=== PATIENT | female | born 2000 | race Hispanic/Latino ===

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

== ENCOUNTER 2021-06-14 13:56 | Emergency (ER) | payer MEDICAID, SELFPAY ==
[2021-06-14 13:56] VITALS: BP 116/68; PULSE 88; RESP 16; TEMP 37.1; O2SAT 100; BMI 21.5
--- NOTE | 2021-06-14 14:25 | EDS_ITS ---
HPI History of Present Illness Chief Complaint: Foreign Body Informant: patient and parent Onset/Context/Timing Onset: Yesterday (Possible retained tampon) Current Severity: Normal menstrual cramping Maximum Severity: Normal menstrual cramping Worsened by: Not applicable Relieved by: Not applicable Associated Symptoms Associated Symptoms: No systemic symptoms Narrative Narrative: Patient is a 20-year-old female who presents because of presumed retained tampon. She is presently menstruating. She denies fever or chills. She denies nausea, vomiting or diarrhea. She denies dysuria, frequency, urgency or hematuria. She denies orthostatic symptoms. She denies rash. Prior similar symptoms: No Recent Illness/Hospitalization: No [facility] Medical History (Updated 06/14/21 @ 14:[address] Ezio Velazco MD) ADD (attention deficit disorder) Asthma Frequent headaches Seasonal allergies Home Medications etonogestrel 68 mg subdermal implant 1 implant SUBDERMAL ONCE 01/10/20 [History Last Taken Unknown] valacyclovir 500 mg tablet 500 mg PO DAILY #30 tab 01/20/20 [Rx Last Taken Unknown] loratadine 10 mg tablet 10 mg PO DAILY PRN 02/04/20 [History Last Taken Unknown] hydroxyzine HCl 25 mg tablet 25 mg PO BID PRN #60 tab 06/03/20 [Rx Last Taken Unknown] cholecalciferol (vitamin D3) 1,250 mcg (50,000 unit) capsule 1,250 mcg PO QWEEK #8 cap 10/22/20 [Rx Last Taken Unknown] montelukast 10 mg tablet 10 mg PO QHS #90 tab 10/22/20 [Rx Last Taken Unknown] metoprolol succinate 25 mg tablet,extended release 24 hr 25 mg PO QAM #30 tab 11/06/20 [Rx Last Taken Unknown] albuterol sulfate 90 mcg/actuation aerosol inhaler 2 puff INHALATION Q6H PRN #8.5 g 04/05/21 [Rx Last Taken Unknown] naproxen 500 mg tablet 500 mg PO BID PRN #60 tab 04/05/21 [Rx Last Taken Unknown] sumatriptan succinate 25 mg tablet See Rx Instructions PO .COMPLEX #14 tab 04/05/21 [Rx Last Taken Unknown] Allergy/AdvReac Type Severity Reaction Status Date / Time No Known Allergies Allergy Verified 06/14/21 14:12 Family History Mother Breast cancer, Onset Age: 36 estrogen positive. Negative BRCA Alcoholism Anxiety Asthma Arthritis Depression Hypertension Father Alcoholism Anxiety Depression Grandmother Arthritis Asthma Grandfather Alcoholism Depression Surgical History History of tonsillectomy History of wisdom tooth extraction Social History Smoking Status: Never smoker alcohol intake: never substance use type: does not use caffeine: Yes what type of physical activity do you participate in: walking seatbelt use: always additional social history: Joshua MORE ROS ED Constitutional Constitutional ED: Denies chills, fever(s) or subjective Cardiovascular Cardiovascular: Denies chest pain or palpitations Respiratory/Chest Respiratory/Chest: Denies cough or dyspnea Gastrointestinal Gastrointestinal: Reports abdominal pain; Denies constipation, diarrhea, nausea or vomiting Genitourinary Genitourinary ED: Denies dysuria, hematuria or urinary frequency Musculoskeletal Musculoskeletal: Denies arthralgias, back pain, myalgias or neck pain Integumentary Denies rash Neurologic Neurologic: Denies weakness Allergic/Immunologic Allergic/Immunologic ED: Denies mouth swelling, tongue swelling or urticaria EXAM Physical Exam Const Vital Signs: 06/14/21 13:56 Temperature 98.7 F Temperature Source Temporal Pulse Rate 88 Respiratory Rate 16 Blood Pressure 116/68 Blood Pressure Mean 84 Pulse Ox 100 Oxygen Delivery Method Room Air Positive well nourished and well developed General Appearance ED: well developed and NAD Eyes PERRL and EOMs intact bilaterally General Eye ED: Negative for pale conjunctiva or scleral icterus Neck no lymphadenopathy and supple Resp normal respiratory effort and clear to auscultation bilaterally Cardio regular rate, regular rhythm, S1 normal heart sound, S2 normal heart sound and no murmurs GI normal to inspection, nondistended, normoactive bowel sounds Palpation: soft Narrative: External genitalia normal. Speculum exam reveals no retained tampon. Vaginal cervical mucosa are normal. Scant amount of blood noted Back/Spine no CVA tenderness Extremity normal to inspection Neuro oriented x3 Sensorium / Orientation: alert Psych mental status grossly normal Skin no rashes or lesions noted, no wounds and skin turgor normal MDM MDM MDM Narrative Medical decision making narrative: Pelvic exam reveals no retained foreign body. Will discharge to home. Discharge Plan Triage Chief Complaint: Foreign Body ED Provider: Ezio Velazco Dx/Rx/DC Orders Clinical Impression: Encounter for medical screening examination Instructions: ED Screening Exam Medical Nonurgent Prescriptions: No Action Nexplanon 68 mg implant 1 implant subdermal ONCE RF: 0 loratadine [Claritin] 10 mg tablet 10 mg PO DAILY PRNRF: 0 hydroxyzine HCl 25 mg tablet 25 mg PO BID PRN (Reason: migraine headache) Qty: 60 RF: 2 valacyclovir [Valtrex] 500 mg tablet 500 mg PO DAILY Qty: 30 RF: 12 montelukast [Singulair] 10 mg tablet 10 mg PO QHS Qty: 90 RF: 1 cholecalciferol (vitamin D3) 1,250 mcg (50,000 unit) capsule 1,250 mcg PO QWEEK Qty: 8 RF: 0 metoprolol succinate 25 mg tablet extended release 24 hr 25 mg PO QAM Qty: 30 RF: 1 naproxen 500 mg tablet 500 mg PO BID PRN (Reason: pain) Qty: 60 RF: 0 sumatriptan succinate 25 mg tablet See Rx Instructions PO .COMPLEX Qty: 14 RF: 0 albuterol sulfate [Proventil HFA] 90 mcg/actuation HFA aerosol inhaler 2 puff INHALATION Q6H PRN (Reason: shortness of breath or wheezing) Qty: 8.5 RF: 3 Primary Care Provider: Juan Francisco Allred Referrals: Juan Francisco Allred MD [Primary Care Provider] - As Needed Disposition Disposition: Home, Self Care
== END 2021-06-14 14:40 | disposition home or self-care (01) ==
LOC: ED 14:38
PROVIDERS: Emergency Provider Emergency Medicine; PCP Internal Medicine
DX: Z00.00 Encounter for general adult medical examination without abnormal findings (principal); J45.909 Unspecified asthma, uncomplicated; Z79.51 Long term (current) use of inhaled steroids
CPT/HCPCS: 99282

== ENCOUNTER 2022-01-11 16:57 | Outpatient (CLI) | payer MEDICAID, SELFPAY ==
[2022-01-13 22:07] LABS: Chlamydia By Nucleic Acid AMP Negative (Negative)
[2022-01-13 23:01] LABS: Gonococcus By Nucleic Acid AMP Negative (Negative)
[2022-01-18 11:13] LABS: HPV Reflexed? NOT INDICATED
== END 2022-01-11 23:59 | disposition home or self-care (01) ==
LOC: LABSPEC 16:59
PROVIDERS: PCP Internal Medicine; Visit Provider Obstetrics & Gynecology
DX: Z12.4 Encounter for screening for malignant neoplasm of cervix (principal); Z11.3 Encounter for screening for infections with a predominantly sexual mode of transmission
CPT/HCPCS: 87491; 87591; 88175; G0145

== ENCOUNTER 2022-03-02 02:09 | Emergency (ER) | payer MEDICAID, SELFPAY ==
[2022-03-02 02:11] VITALS: BP 110/71; PULSE 97; RESP 16; TEMP 36.6; O2SAT 98; BMI 20.9
--- NOTE | 2022-03-02 03:08 | EX.ED.DYSGE1 ---
HPI History of Present Illness Chief Complaint: Abd Pain Informant: patient Narrative Narrative: 21-year-old female presenting to the emergency room with abdominal pain nausea and diarrhea. Patient states that 2 days ago she developed body aches. Then yesterday she developed nausea and diarrhea. She states that she has been trying to stay hydrated but the diarrhea has persisted. She has not had any antidiarrheal medicine. No fevers. She denies any bad food exposure. She is ate the same things as her mother and her mother is not sick. She describes the pain as cramping and over the lower to mid abdomen. Gets better and worse. [facility] Medical History (Updated 03/02/22 @ 03:[address] Naman Villegas DO) ADD (attention deficit disorder) Asthma Frequent headaches Seasonal allergies Home Medications etonogestrel 68 mg subdermal implant 1 implant SUBDERMAL ONCE 01/10/20 [History Last Taken Unknown] albuterol sulfate 90 mcg/actuation aerosol inhaler 2 puff INHALATION Q6H PRN #8.5 g 04/05/21 [Rx Last Taken Unknown] naproxen 500 mg tablet 500 mg PO BID PRN #60 tab 04/05/21 [Rx Last Taken Unknown] sumatriptan succinate 25 mg tablet See Rx Instructions PO .COMPLEX #14 tab 04/05/21 [Rx Last Taken Unknown] valacyclovir 500 mg tablet 500 mg PO DAILY PRN tab 01/11/22 [History Last Taken Unknown] dicyclomine 20 mg PO TIDAC #20 capsule 03/02/22 [Rx Last Taken Unknown] ondansetron 4 mg PO Q6H PRN PRN #15 tab 03/02/22 [Rx Last Taken Unknown] Allergy/AdvReac Type Severity Reaction Status Date / Time No Known Allergies Allergy Verified 03/02/22 02:17 Family History Mother Breast cancer, Onset Age: 36 estrogen positive. Negative BRCA Alcoholism Anxiety Asthma Arthritis Depression Hypertension Father Alcoholism Anxiety Depression Grandmother Arthritis Asthma Grandfather Alcoholism Depression Surgical History History of tonsillectomy History of wisdom tooth extraction Social History Smoking Status: Never smoker alcohol intake: never substance use type: does not use caffeine: Yes what type of physical activity do you participate in: none seatbelt use: always ROS ROS ED Constitutional Constitutional ED: Denies chills or weight loss Eyes Eyes: Denies change in vision or diplopia ENT ENT ED: Denies ear pain, rhinorrhea or sore throat Cardiovascular Cardiovascular: Denies chest pain, orthopnea, palpitations or racing heartbeat Respiratory/Chest Respiratory/Chest: Denies cough, dyspnea or orthopnea Gastrointestinal Gastrointestinal: Reports abdominal pain, diarrhea and nausea; Denies vomiting Genitourinary Genitourinary ED: Denies dysuria, hematuria or urinary frequency Musculoskeletal Musculoskeletal: Reports myalgias; Denies arthralgias Integumentary Denies abscess or rash Neurologic Neurologic: Denies headache(s) or weakness Psychiatric Psychiatric: Denies anxiety, depression, suicidal ideation or suicidal thoughts Endocrine Endocrinology: Denies polydipsia, polyphagia or polyuria Allergic/Immunologic Allergic/Immunologic ED: Denies mouth swelling, tongue swelling or urticaria EXAM Physical Exam Const Vital Signs: 03/02/22 02:11 Temperature 97.9 F Temperature Source Oral Pulse Rate 97 Respiratory Rate 16 Blood Pressure 110/71 Blood Pressure Mean 84 Pulse Ox 98 Oxygen Delivery Method Room Air Positive well nourished and well developed General Appearance ED: well developed HEENT Reports normocephalic, head/scalp atraumatic and moist mucous membranes Eyes PERRL and EOMs intact bilaterally Neck no lymphadenopathy, supple and no JVD Resp normal respiratory effort and clear to auscultation bilaterally Cardio regular rate, regular rhythm and no murmurs GI non-tender GI Narrative: Mild diffuse tenderness to palpation Palpation: soft and tender; Negative for guarding or rebound tenderness present Back/Spine no CVA tenderness and normal ROM Extremity normal to inspection General Extremety ED: Negative for edema General Extremity: Negative for edema Neuro oriented x3 and CN's II-XII intact bilaterally Sensorium / Orientation: alert Motor Exam: strength 5/5 throughout Psych mental status grossly normal Mood & Affect: Negative for depressed or tearful Skin no rashes or lesions noted and no wounds MDM MDM MDM Narrative Medical decision making narrative: Patient received a liter of IV fluids and Zofran in addition to Bentyl. White blood cell count is 7. CMP showed a chloride of 108 lipase 121. COVID test is negative. Patient will be discharged home with a prescription for Bentyl and Zofran return if worsening or concerns Lab Data Attestation: I reviewed the patient's lab results. Labs: Laboratory Results - last 24 hr 03/02/22 03/02/22 03:07 03:07 WBC 7.0 RBC 4.61 Hgb 14.3 Hct 43.1 MCV 93.5 MCH 31.0 MCHC 33.2 RDW Std Deviation 40.3 RDW Coeff of Suresh 11.8 Plt Count 244 MPV 11.7 Immature Gran % (Auto) 0.400 Neut % (Auto) 72.0 H Lymph % (Auto) 17.9 L [place] % (Auto) 8.7 Eos % (Auto) 0.7 Baso % (Auto) 0.3 Absolute Neuts (auto) 5.1 Absolute Lymphs (auto) 1.26 Nucleated RBC % 0 Sodium 138 Potassium 3.6 Chloride 108 H Carbon Dioxide 27.0 Anion Gap 3 L BUN 11 Creatinine 0.87 Estim Creat Clear Calc 98.97 Est GFR (MDRD) Af Amer 107 Est GFR (MDRD) Non-Af 88 BUN/Creatinine Ratio 12.7 Glucose 86 Calcium 9.3 Total Bilirubin 0.40 AST 20 ALT 23 Alkaline Phosphatase 75 Total Protein 7.4 Albumin 3.9 Globulin 3.5 Albumin/Globulin Ratio 1.1 Lipase 121 Discharge Plan Triage Chief Complaint: Abd Pain ED Provider: Naman Villegas Dx/Rx/DC Orders Clinical Impression: Abdominal pain, Diarrhea, Nausea Instructions: ED Vomiting and Diarrhea ... Prescriptions: New ondansetron [ondansetron] 4 MG tablet 4 mg PO Q6H PRN PRN (Reason: Nausea) Qty: 15 RF: 0 dicyclomine 10 MG capsule 20 mg PO TIDAC Qty: 20 RF: 0 No Action Nexplanon 68 mg implant 1 implant subdermal ONCE RF: 0 valacyclovir [Valtrex] 500 mg tablet 500 mg PO DAILY PRNRF: 0 naproxen 500 mg tablet 500 mg PO BID PRN (Reason: pain) Qty: 60 RF: 0 sumatriptan succinate 25 mg tablet See Rx Instructions PO .COMPLEX Qty: 14 RF: 0 albuterol sulfate [Proventil HFA] 90 mcg/actuation HFA aerosol inhaler 2 puff INHALATION Q6H PRN (Reason: shortness of breath or wheezing) Qty: 8.5 RF: 3 Primary Care Provider: Juan Francisco Allred Referrals: Juan Francisco Allred MD [Primary Care Provider] - As Needed Disposition Disposition: Home, Self Care
[2022-03-02 03:27] LABS: Absolute Lymphocyte Count 1.26 X10^3/uL (0.83-4.51); Absolute Neutrophil Count 5.1 X10^3/uL (2.0-7.7); Basophil# 0.02 X10^3/uL; Basophil% 0.3 % (0-1); Eosinophil# 0.05 X10^3/uL; Eosinophils% 0.7 % (0-5); Hematocrit 43.1 % (37-47); Hemoglobin 14.3 g/dL (12.0-15.0); Lymphocyte # 1.26 X10^3/ul (0.83-4.51); Lymphocyte % 17.9 % (19-41); Mean Corp Hgb Conc 33.2 g/dL (32-36); Mean Corpuscular Volume 93.5 fL (81-99); Mean Platelet Vol. 11.7 fl (6.2-12.0); Monocyte# 0.61 X10^3/uL; Monocyte% 8.7 % (0-10); NRBC Flagged by Analyzer 0 % (0-5); Neutrophil # 5.05 X10^3/uL (2.7-7.7); Platelet Count 244 K/mm3 (150-450); RBC Distribution Width CV 11.8 % (11.6-14.6); RBC Distribution Width SD 40.3 fl (35.1-43.9); Red Blood Count 4.61 M/mm3 (4.2-5.4)
[2022-03-02] MEDS: Dicyclomine 10 MG Capsule 20 MG PO (03:27)
[2022-03-02] MEDS: Ondansetron 4 MG/2 ML Vial IV (03:27)
[2022-03-02] MEDS: 0.9% Normal Saline 1,000 ML 1000 ML IV (03:27)
--- NOTE | 2022-03-02 03:34 | NURSING ---
As of 230, patient is awaiting transfer to [facility] but does not have a bed there because there are none available and the ER is too busy to send him. We are to admit at 0830 if there are still no beds available.
[2022-03-02 03:52] LABS: ALB/GLOB Ratio 1.1 RATIO (0.9-2.4); AST(SGOT) 20 U/L (15-37); Alanine Aminotransfer ALT/SGPT 23 U/L (13-56); Albumin, Serum 3.9 g/dL (3.2-5.0); Alkaline Phosphatase 75 U/L (45-117); Anion Gap 3 (5-15); BUN 11 mg/dL (7-18); BUN/Creat Ratio 12.7 RATIO (10-20); Calcium,Total 9.3 mg/dL (8.5-10.1); Chloride 108 mmol/L (98-107); Creatinine, Serum 0.87 mg/dL (0.55-1.02); EST Glomerular Filtration Rate 88 mL/min (>60); Est Glom Filt Rate - Afr Amer 107 mL/min (>60); Estimated Creatinine Clearance 98.97 ml/min; Globulin 3.5 g/dL (2.2-4.2); Glucose 86 mg/dL (74-106); Lipase 121 U/L (73-393); Potassium 3.6 mmol/L (3.5-5.1); Protein, Total 7.4 g/dL (6.4-8.2); Sodium Level 138 mmol/L (136-145)
[2022-03-02 04:45] VITALS: BP 110/73; PULSE 78; RESP 17; O2SAT 98
== END 2022-03-02 04:54 | disposition home or self-care (01) ==
PROVIDERS: Emergency Provider Emergency Medicine; PCP Internal Medicine; Visit Provider Emergency Medicine
DX: R10.9 Unspecified abdominal pain (principal); R19.7 Diarrhea, unspecified; R11.0 Nausea
CPT/HCPCS: 80053; 83690; 85025; 87426; 96361; 96374; 99283; J7030; A4216; J2405